=== PATIENT | male | born 1955 | race Caucasian/White ===

== ENCOUNTER 2020-07-16 11:17 | Inpatient (IN) | payer MEDICARE, MEDICAID, SELFPAY ==
[2020-07-16] VITALS (9 sets, daily range): BP systolic 125–156; BP diastolic 78–90; PULSE 99–124; RESP 21–27; TEMP 36.1–36.4; O2SAT 95–100; BMI 34.9
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
--- NOTE | 2020-07-16 14:17 | DI.CT.S_ITS ---
PROCEDURE: CT ANGIO CHEST PE PROTOCOL INDICATIONS: R heart failure on echo TECHNIQUE: After the administration of intravenous contrast, 2 mm thick sections acquired from the pulmonary apices to the posterior costophrenic angles. 3-dimensional maximum intensity projection (MIP) coronal and sagittal reformats were then acquired through the thorax. For radiation dose reduction, the following was used: automated exposure control, adjustment of mA and/or kV according to patient size. COMPARISON: None. FINDINGS: Image quality: Excellent. Pulmonary arteries: Pulmonary arteries are normal in size, and demonstrate no intraluminal filling defects to suggest central pulmonary embolism. Lungs and pleura: Moderate-sized right-sided pleural effusion. Trace left-sided pleural effusion. Consolidation noted left lung base which likely represents compressive atelectasis, however aspiration or pneumonia can not be differentiated by imaging alone.. Central and peripheral airways are patent. Mediastinum: Heart size is normal, without pericardial effusion. Heart RV/LV ratio is normal. Atherosclerotic calcifications are noted in the coronary vasculature. No mediastinal or hilar adenopathy. Thoracic aorta is normal in caliber and enhancement. Esophagus is normal in caliber. There is a small hiatal hernia. Bones and chest wall: No suspicious bony lesions. Ribs and thoracic spine appear intact throughout. Spine degenerative disc disease and facet arthropathy. Thyroid gland is within normal limits No axillary or supraclavicular adenopathy. Abdomen: Liver has nodular margins suggesting hepatic cirrhosis. Large partially calcified gallstones noted in the visualized gallbladder. IMPRESSION: 1. No pulmonary embolus. 2. Moderate-sized right-sided and trace left-sided pleural fluid collections. 3. Right basilar consolidation which likely represents compressive atelectasis, however infectious process can not be differentiated by imaging alone. 3. Cirrhotic appearing liver. 4. Cholelithiasis. Dictated by: Shelly Mendoza MD, PhD on 07/16/2020 at 15:22 Approved by: Shelly Mendoza MD, PhD on 07/16/2020 at 15:29
[2020-07-16] MEDS: FUROSEMIDE 40 MG/4 ML VIAL IV (14:26)
[2020-07-16 14:46] LABS: Alanine Aminotransferase 24 IU/L (<50); Albumin 3.8 g/dL (3.5-5.0); Albumin Globulin Ratio 1.1 (1.0-2.8); Alkaline Phosphatase 119 U/L (38-126); Aspartate Aminotransferase 25 IU/L (17-59); BUN Creatinine Ratio 21.4 (6-22); Bilirubin Total 0.5 mg/dL (0.2-1.3); Bilirubin Unconjugated 0.3 mg/dL (0.0-1.1); Blood Urea Nitrogen 15 mg/dL (9-20); Calcium 9.3 mg/dL (8.4-10.2); Carbon Dioxide 25 mmol/L (22-32); Chloride 105 mmol/L (98-107); Estimated Glomerular Filt Rate > 60.0 mL/min (>60); Globulin 3.5 g/dL (1.7-4.1); Glucose 262 mg/dL (80-110); HEMOLYSIS 29 (0-50); Magnesium 1.9 mg/dL (1.6-2.3); Potassium 4.8 mmol/L (3.4-5.1); Sodium 136 mmol/L (137-145); Total Protein 7.3 g/dL (6.3-8.2)
[2020-07-16 14:57] LABS: Troponin I < 0.012 ng/mL (0.01-0.034)
--- NOTE | 2020-07-16 15:07 | PC.NURSE ---
[place] [facility] [place]- able to wean to off to room air with spo2 94-98% lungs with bilat crackles at bases and noted 2+ peripheral edema to bilat lower extremities - iv access x 2 and saline locked - pt with strong forceful cough and episodes of obvious YVONNE- mrsa swab and other labs pending- using urinal well after receiving iv lasix
[2020-07-16 15:10] LABS: NT-proBNP (BNP-Adult 18+) 969 pg/mL (<125)
[2020-07-16 15:51] LABS: HCO3 VBG 27 mmol/L (23-28); PCO2 VBG 37.5 mmHg (45-50); PO2 VBG 62 mmHg (35-45); pH VBG 7.47 (7.33-7.43)
[2020-07-16 15:52] LABS: Oxygen Saturation VBG 93 % (70-75); Total CO2 VBG 28 mmol/L (24-29)
[2020-07-16] MEDS: INSULIN LISPRO 100 UNIT/ML 3ML VIAL SUBCUT (16:32)
[2020-07-16] MEDS: METOPROLOL ER 25 MG TABLET PO (20:47)
--- NOTE | 2020-07-16 21:31 | PC.NURSE ---
Evening shift note: Pt A/Ox3, able to make needs known, 95% on RA, but prefers 1-2L O2 for comfort, lungs have bilateral crackles at bases, BLE 2+ edema, SL PIV x2 R/L hand, intermittent cough that is dry and forceful, Telemetry shows A-Fib RVR HR 90-120's, provider aware. Positive for MRSA in the nares, using urinal after receiving IV Lasix. Bed low and locked, alarm on for safety, will continue to monitor.
[2020-07-17] VITALS (11 sets, daily range): BP systolic 114–131; BP diastolic 73–94; PULSE 86–119; RESP 10–30; TEMP 35.7–36.5; O2SAT 90–99
[2020-07-17] MEDS: ALBUTEROL 2.5 MG/3 ML NEB (ADULT) INH ×2 (02:34→10:48)
--- NOTE | 2020-07-17 05:13 | PC.NURSE ---
At 0500, pt. placed on Bipap at 30%, I/E-10/5, R-10 for c/o dyspnea. Pt. had been on 2L NC with sats ranging in the low to upper 90's. Pt. feels like he is not getting enough air, also noted pt. to apneic at times but for the most part has been tachypneic and remains afib RVR in the 110's 10 130's. This morning however prior to Bipap, noted pt's HR dip into 60 and 45 afib briefly then back up to RVR. Pt. is drowsy but remains alert and oriented. Lung sounds decreased throughout with occasional ins/exp. wheeze. B/P remains stable and pt. is afebrile. Cont. to monitor. Pt. may need thoracentesis today.
[2020-07-17 05:33] LABS: Hemoglobin A1C% w Est Avg Glu 8.3 % (4.0-6.0)
[2020-07-17 05:37] LABS: BUN Creatinine Ratio 20.9 (6-22); Blood Urea Nitrogen 18 mg/dL (9-20); Calcium 9.5 mg/dL (8.4-10.2); Carbon Dioxide 30 mmol/L (22-32); Chloride 102 mmol/L (98-107); Estimated Glomerular Filt Rate > 60.0 mL/min (>60); Glucose 182 mg/dL (80-110); HEMOLYSIS < 15 (0-50); Magnesium 1.9 mg/dL (1.6-2.3); Potassium 4.1 mmol/L (3.4-5.1); Sodium 138 mmol/L (137-145)
--- NOTE | 2020-07-17 05:48 | RT ---
Pt placed on BiPAP at 0501. Pt has been ripping mask off and has been educated multiple times about the benefits of the BiPAP. RN aware.
[2020-07-17] MEDS: MORPHINE 2 MG/ML INJ 1 MG IV (05:52)
--- NOTE | 2020-07-17 06:42 | PC.NURSE ---
Pt. is not tolerating Bipap, he keeps ripping it off his face stating he can't breathe. 02 2L NC applied back on and Bipap placed on standby. Austin Lobo notified of this and also RT.
[2020-07-17] MEDS: FUROSEMIDE 40 MG/4 ML VIAL IV ×2 (06:56→16:03)
[2020-07-17] MEDS: METOPROLOL ER 25 MG TABLET PO ×2 (08:02→08:37)
[2020-07-17] MEDS: INSULIN LISPRO 100 UNIT/ML 3ML VIAL SUBCUT ×2 (08:05→12:00)
--- NOTE | 2020-07-17 10:43 | PC.NURSE ---
Addendum entered by Tristen Ho R.N. 07/17/20 11:31: Pt was noted to be asleep in bed. HR decreased to 45. At that time, pt was noted to have a loud snore. Pt awoke- startled, HR increased to 100s. Reports he needs help. States he is unable to breathe. SPO2 remained 92-95%. RR 20s. Asked pt if he has ever been told he has sleep apnea. Pt states he is unsure if he has been told this or if he has symptoms. Updated Dr. Ziegler on assessment findings. Reported pt unable to tolerate BIPAP on NOC shift. No add'l orders at this time. Original Note: Pt put call light on. Reports difficulty breathing. Noted pt with RR 33, using accessory muscles to breathe. Pt is anxious, diaphoretic, HOB 30 degrees. Elevated HOB to 65 degrees. HR 70s-130s, Afib BP 127/84 RR 33 SPO2 95% RA. Spot check BG 281. Lungs are diminished anteriorly and posteriorly. Exp wheezing heard over posterior right lung field. Pt denies chest pain, pressure, palpitations. Denies any new numbness or pain to extremities. Instructed in deep breathing techniques and provided fan for comfort. Notified RT of pt's shortness of breath. Called to Dr. Ziegler. Reported assessment findings. Instructed to have RT admin PRN neb and states he will come to bedside to evaluate pt.
--- NOTE | 2020-07-17 10:43 | DI.RAD.S_ITS ---
PROCEDURE: XR CHEST 1V INDICATIONS: worsened shortness of breath, tachypnea TECHNIQUE: One view of the chest was acquired. COMPARISON: None. FINDINGS: Surgical changes and devices: None. Lungs and pleura: Small right-sided pleural effusion. Patchy opacities noted in the right lung which could represent atelectasis or pneumonia. Mediastinum: Mediastinal contours appear normal. Heart size is normal. Bones and chest wall: No suspicious bony lesions. Overlying soft tissues appear unremarkable. IMPRESSION: 1. Small right-sided effusion. 2. Right lung atelectasis versus pneumonia. Dictated by: Shelly Mendoza MD, PhD on 07/17/2020 at 12:18 Approved by: Shelly Mendoza MD, PhD on 07/17/2020 at 12:19
[2020-07-17] MEDS: ENOXAPARIN 40 MG/0.4 ML SYRINGE SUBCUT (12:00)
--- NOTE | 2020-07-17 15:55 | CM.IDA ---
Initial DCP Assessment Note Patient is a 64 yo male, resident of [place]: [address], [place]. Presents to [facility] in [place] for complaints of SOB and weakness. Patient was inevitably transferred for direct admission to for further management of atrial fibrillation with rapid ventricular response and what appears to be new diagosis of cor pulmonale. PMH includes Urine drug screen showing + for methampetamine, amphetamines, and marijuana. Patient MRSA + in the Nares PCP: Unlisted Payer: [employer] Met w/patient this morning to introduce role. Patient seems sleepy but able to answer questions, A+O throughout the visit. Patient states he lives alone in [place] and was in [place] with friends. 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 Later heard from Dr Ziegler that patient is expected to leave [facility] this afternoon JW
--- NOTE | 2020-07-17 16:15 | PT-IP ANOTE ---
Attempted to see pt for evaluation but he stated he was getting ready to leave. Discussed with hospitalist physician who confirmed pt is leaving AMA and ok to discharge therapy orders.
--- NOTE | 2020-07-17 16:17 | PM.DS.1 ---
History of Present Illness History of Present Illness Date Patient Seen: 07/17/20 Time Patient Seen: 16:17 Chief complaint: DX AFIB, RVR Narrative: This is a 64-year-old male with only known history of tobacco use who initially presented to [facility] with complaints of shortness of breath and weakness since the day prior to arrival there on 07/15/20. He denied symptoms of palpitations, chest pain, headaches, vision changes, dizziness. He states he has always had some lower extremity edema since he was a young child. He denied any fevers, chills, abdominal pain, nausea, vomiting, early satiety. He denied orthopnea prior to these events. Course at [facility]. Patient reportedly presented with symptoms that had acutely started the day before. They attempted cardioversion, which was successful but the patient return into atrial fibrillation about 20 seconds later. He had worsening trouble breathing at that point and required up to 15 L of oxygen via nasal cannula which was weaned down somewhat. He was then transitioned to a diltiazem infusion with improved rate control. He was given a dose of 20 mg of Lasix IV x1, then given IV fluids according to this report and a couple of boluses for hypotension, and metoprolol 25 mg a bit later. It appears oral dilt was held for hypotension. There were no beds available at [facility], so the patient was accepted for admission to [facility] as a direct admission for further management of atrial fibrillation with rapid ventricular response and what appears to be new diagosis of cor pulmonale. Laboratory evaluation at [facility]: CMP shows no acute abnormalities other than a glucose of 250, this improved to 201 the following morning. CBC showed no significant lab abnormalities with WBC 7.9, hemoglobin 13.2, platelet count 251. Troponins were reported within normal limits, but no value is seen. TSH was 0.407. Magnesium was 1.9. Alcohol level was negative. Chest x-ray showed a moderate right-sided pleural effusion with underlying atelectasis and moderate right pleural effusion. EKG showed atrial fibrillation without evidence of acute ischemia. Echocardiogram performed this morning showed an EF of 55% with no regional wall motion abnormalities. It did however show right ventricular dilatation and mild to moderate right-sided systolic function. There was mild to moderate tricuspid and mitral regurg and the estimated pulmonary artery pressure was 35 mm Hg. Diastolic function was unable to be assessed due to atrial fibrillation. Venous blood gas showed a pH of 7.32, with a pCO2 of 50 consistent with respiratory acidosis. Urine drug screen showing + for methampetamine, amphetamines, and marijuana. Discharge Providers Provider Date of admission: 07/16/20 11:17 Discharge Date: 07/17/20 Consults: 07/16/20 13:50 Consult to Respiratory Therapy Evaluate & Treat Comment: Physician Instructions: Evaluate and treat 07/16/20 14:31 Consult to Physical Therapy Evaluate & Treat Comment: Physician Instructions: Evaluate and Treat 07/17/20 04:59 Consult to Respiratory Therapy Evaluate & Treat Comment: ?Sleep apnea, trial CPAP? Physician Instructions: Evaluate and treat Discharge provider: Jethro Ziegler DO Summary Hospital Course Discharge Diagnosis: 1. Atrial fibrillation with rapid ventricular response, new diagnosis, present on admission. 2. Right systolic heart failure, probable cor pulmonale, present on admission, unknown acuity 3. Right pleural effusion, present on admission 4. Respiratory acidosis, present on ER arrival. acute repiratory failure with hypercarbia and hypoxemia. 5. Type 2 diabetes, new diagnosis, present on admission. 6. Tobacco use, chronic Hospital Course: This is a 64-year-old male with only known history of tobacco use who initially presented to [facility] with complaints of shortness of breath and weakness for the previous day. He was a direct admission from [facility] Emergency Room with AFib with RVR and right heart failure based on ultrasound evaluation already performed at [facility]. Once ultrasound was reviewed after arrival, CT angiogram was performed and did not show a pulmonary embolism. He was diuresed with IV furosemide with success in improving his symptoms and lower extremity edema, though he likely had more fluid to remove. His afib had improved with oral metoprolol as well, but he remained slightly tachycardic in the 100s-110s generally. The source of his afib and right heart failure are not entirely clear at this time. He was noted to have be in acute hypoxemic and hypercarbic respiratory failure upon arrival to the [facility] ER which had improved by the time of his arrival to [facility]. Most likely source of heart failure is YVONNE at this time as the patient would fall asleep and become apnic and hypoxic then arouse and improve. He couls also have COPD given smoking history. The day after admission, patient was requesting to leave so that he may see his son whom he reported was being deployed. He was able to understand the risks of leaving including worsening heart failure in setting of an uncontrolled arrythmia and opted to leave against medical advice. He was discharged on oral metoprolol, furosemide, and apixaban given his CHADS-VaSC score. Metformin was also started on discharge for a new diagnosis of diabetes with an A1c of 8.3%. I recommended he follow up with a PCP as soon as possible, ideally should follow up tomorrow with another provider, for further management. Status at Discharge Cognitive/behavioral status at discharge: oriented Overall status at discharge: patient is progressing back to baseline Time Spent with Patient Time spent: Greater than 30 minutes Exam Vital Signs (past 8 hours): - 07/17/20 10:32 07/17/20 10:48 07/17/20 12:00 Temperature 97.0 F L Pulse Rate 108 H 110 H 96 H Respiratory Rate 30 H 24 16 Blood Pressure 127/84 126/74 Pulse Oximetry 96 96 96 07/17/20 16:00 Temperature 96.3 F L Pulse Rate 86 Respiratory Rate 28 H Blood Pressure 114/73 Pulse Oximetry 93 Fraction of Inspired Oxygen 30 Oxygen Delivery Method Room Air Oxygen Flow Rate 0 Narrative Exam Narrative: GENERAL APPEARANCE: Well developed, well nourished, lethargic and mildly ill-appearing obese male, BMI 35.0. SKIN: Inspection of the skin reveals no ulcerations or petechiae. There are bilateral venous stasis changes in his lower extremities. His forehead is mildly diaphoretic. Scattered tattoos. HEENT: Normocephalic atraumatic, extraocular muscles are intact, oropharynx is clear and mucous membranes are moist, neck is supple without adenopathy NECK: Supple and symmetric. There was no thyroid enlargement, and no tenderness, or masses were felt. CHEST: Normal AP diameter and normal contour without any kyphoscoliosis. LUNGS: Upper airway wheezing bilateral, diminished breath sounds over the right lung, with left lower lobe crackles CARDIOVASCULAR: Irregularly irregular rhythm within normal rate, no murmurs, rubs, or gallops. ABDOMEN: Soft and nontender with normal bowel sounds. No ascites was noted. MUSCULOSKELETAL: There was no tenderness or effusions noted. Muscle strength and tone were normal. EXTREMITIES: No cyanosis, clubbing. 2+ pitting edema. NEUROLOGIC: Alert and oriented x 3. Normal affect. Gait was normal. Strength is +5/5 in the Upper Extremities and Lower Extremities Bilaterally. Sensation to touch was normal. Objective Labs Result Diagrams: 07/17/20 04:58 07/17/20 04:58 Labs: Laboratory Results - last 24 hr 07/17/20 07/17/20 04:58 04:58 Sodium 138 Potassium 4.1 Chloride 102 Carbon Dioxide 30 BUN 18 Creatinine 0.86 Estimated GFR > 60.0 BUN/Creatinine Ratio 20.9 Glucose 182 H Hemoglobin A1c 8.3 H Calcium 9.5 Magnesium 1.9 PFSH Medical History Smoking Surgical History H/O splenectomy Social History household members: none Smoking Status: Current every day smoker alcohol intake: current Discharge Plan Discharge Plan Patient Disposition: Left Against Medical Advice Provider Discharge Comment: You decided to leave the hospital today, in order to try and manage you as best as possible I have sent a few medications to the pharmacy. Metoprolol slows your heart rate and should be taken twice a day. Ideally I would titrate this here over the next few days because if left untreated atrial fibrillation can lead to worsening heart failure. Furosemide is a pill designed to remove water, for now this will be given as 40 mg twice a day but will likely need to be decreased as water is taken off. This should be done with the assistance of a physician, and I highly encourage you to establish care with a primary care doctor or visit another physician tomorrow. Apixaban is a medicine designed to reduce your risk of stroke with your atrial fibrillation, or arrhythmia which was diagnosed. Once you see your primary care physician you will likely be referred to a subgrade roller operator for further evaluation of your right heart failure. I highly also recommend you obtain a sleep study as an outpatient because you likely have sleep apnea. Discharge orders & Medications Prescriptions: New metoprolol succinate 50 mg tablet extended release 24 hr 50 mg PO BID 30 Days Qty: 60 RF: 0 furosemide 40 mg tablet 40 mg PO BID 30 Days Qty: 60 RF: 0 apixaban 5 mg tablet 5 mg PO BID 30 Days Qty: 60 RF: 0 metformin 500 mg tablet 500 mg PO BID 30 Days Qty: 60 RF: 0 Diet/Activity/Treatments Diet: Diet as Tolerated and Low-sodium Activity: As tolerated
== END 2020-07-17 17:06 | disposition left against medical advice (07) | DRG 308 ==
PROVIDERS: Admitting Provider Internal Medicine; Referring Provider Internal Medicine; Visit Provider Internal Medicine
DX: I48.91 Unspecified atrial fibrillation (principal); J96.01 Acute respiratory failure with hypoxia; J96.02 Acute respiratory failure with hypercapnia; E87.2 Acidosis; I50.20 Unspecified systolic (congestive) heart failure; I27.81 Cor pulmonale (chronic); F15.10 Other stimulant abuse, uncomplicated; Z53.29 Procedure and treatment not carried out because of patient's decision for other reasons; Z20.822 Contact with and (suspected) exposure to COVID-19; R73.9 Hyperglycemia, unspecified; Z72.0 Tobacco use
CPT/HCPCS: 36415; 71045; 71275; 80048; 80076; 82805; 82962; 83036; 83735; 83880; 84484; 87797; 93005; 93010; 94640; 94660; 94760; J1650; J1815; J1940; J2270; J7613; Q9967